=== PATIENT | male | born 1965 | race Caucasian/White ===

== ENCOUNTER → 2018-08-06 | Outpatient (CLI) | payer BC ==
[~2018-08-06] MED LIST: REGADENOSON 0.4 MG/5 ML SYRINGE IV ONE
--- NOTE | 2018-08-06 11:09 | NM ---
EXAMINATION TYPE: NM stress lexiscan cardiolite DATE OF EXAM: 08/06/2018 COMPARISON: NONE HISTORY: Abnormal EKG TECHNIQUE: After the intravenous administration of 10.28 mCi Tc 99m Sestamibi - Cardiolite resting S PECT images acquired 45 minutes post injection. 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 A small area versus excluded. Gated analysis shows normal wall motion with an estimated left ventric ular ejection fraction of 63 %. IMPRESSION: 1. There is a fixed area of defect involving the inferior wall the myocardium. Small area of stress-i nduced reversibility in the inferolateral myocardium not excluded correlate clinically..
--- NOTE | 2018-08-06 20:53 | EST ---
EXERCISE STRESS DATE OF SERVICE: 08/06/2018. AGE: 53 SEX: Male HT: 6'0" WT: 194 pounds PROTOCOL: Lexiscan Cardiolite STAGE: DURATION OF EXERCISE: HEART RATE REST: 71 BLOOD PRESSURE REST: 116/80 MAXIMUM HEART RATE ACHIEVED: 99 MAXIMUM BLOOD PRESSURE: 123/81 85% MPHR: 144 100% MPHR: 169 METS: INDICATIONS: Abnormal EKG. RESULTS: Baseline EKG revealed normal sinus rhythm without significant ST-T changes. With Lexiscan imaging, heart rate changed from 71-85 beats per minute and blood pressure changed from 116/80 to 110/74. Patient did not have any significant symptoms. EKG did not reveal any ST-segment changes. There were minor nonspecific ST-segment changes noted. By EKG rate criteria, considered unremarkable Lexiscan stress test with minor EKG changes. Patient did not have any angina. The nuclear scan results which are more pertinent, will be reported by the radiologist. AMANDEEP / BOBBYN: [id number] /
== END | disposition home or self-care (01) ==
LOC: RADNMMAIN 08:07
PROVIDERS: ATTEND Internal Medicine
DX: R94.31 Abnormal electrocardiogram [ECG] [EKG] (principal)
CPT/HCPCS: 93017; 78452; A9500; J2785